=== PATIENT | female | born 1995 | race Caucasian/White ===

== ENCOUNTER 2016-10-25 09:58 | Emergency (ER) | payer SELFPAY ==
[~2016-10-25] VITALS: Ht 160 cm; Wt 52.0 kg
[2016-10-25 09:59] VITALS: BP 129/62; PULSE 98; RESP 20; TEMP 98; O2SAT 95
--- NOTE | 2016-10-25 10:18 | PD ---
HPI . sore throat Chief Complaint: ENT Complaint Time Seen by Provider: 10:08 Travel History International Travel<30 days: No Contact w/Intl Traveler<30days: No Traveled to known affect area: No History of Present Illness HPI 21-year-old female with history of ASD within an Amplatzer septal occluder (2013 ) here with complaints of a sore throat that started yesterday. Patient is complaining of increased sore throat and pain, along with a lot of redness in the back of her throat. She denies any fever or chills. She denies any cold symptoms. She has no other complaints. She's not tried anything over-the- counter. Her best friend is present with her. PFSH Past Medical History ?: Not LMP: 10/22/16 Social History Tobacco Use: Yes Allergies-Medications Reported Meds & Prescriptions Reported Meds & Active Scripts Active Amoxicillin 875 Mg Tab 875 Mg PO BID Review of Systems General / Constitutional: No: Fever Eyes: No: Visual changes HENT: Positive: Sore Throat, No: Headaches Cardiovascular: No: Chest Pain or Discomfort Respiratory: No: Shortness of Breath Gastrointestinal: No: Abdominal Pain Genitourinary: No: Dysuria Musculoskeletal: No: Pain Skin: No Rash Neurologic: No: Weakness Psychiatric: No: Depression Endocrine: No: Polydipsia Hematologic/Lymphatic: No: Easy Bruising Physical Exam Narrative GENERAL: AAO x 3, no acute distress, Well-nourished, well-developed patient. SKIN: Warm and dry. No visible rashes or bruising. HEAD: Normocephalic and atraumatic. EYES: No scleral icterus. No injection or drainage. Moderate posterior pharynx erythema. No exudates. TMs normal bilaterally ENT: No nasal drainage noted. Mucous membranes pink. Airway patent. NECK: Supple, trachea midline. No JVD. Cervical chain lymphadenopathy. CARDIOVASCULAR: Regular rate and rhythm without murmurs, gallops, or rubs. RESPIRATORY: Breath sounds equal bilaterally. No accessory muscle use. No rhonchi or rales. GASTROINTESTINAL: Abdomen soft, non-tender, nondistended. EXTREMITIES: No cyanosis or edema. BACK: Nontender without obvious deformity. No CVA tenderness. PSYCH: AAO x 3, normal affect. Data Data Last Documented VS Vital Signs Date Time Temp Pulse Resp B/P Pulse Ox O2 Delivery O2 Flow Rate FiO2 10/25/16 09:59 98.0 98 20 129/62 95 Room Air MDM Medical Decision Making Medical Screen Exam Complete: Yes Emergency Medical Condition: Yes Medical Record Reviewed: Yes Differential Diagnosis Acute pharyngitis, mononucleosis, less likely aphthous ulcers,, less likely GERD Narrative Course 21-year-old female with history of ASD within an Amplatzer septal occluder (2013 ) here with complaints of a sore throat that started yesterday. Patient is complaining of increased sore throat and pain, along with a lot of redness in the back of her throat. She denies any fever or chills. She denies any cold symptoms. She has no other complaints. She's not tried anything over-the- counter. Her best friend is present with her. Patient seen and examined. Patient does have significant posterior erythema without exudates. Will send home with a course of antibiotics and ibuprofen as needed for pain. She can also use salt water gargles. Patient verbalized understanding of instructions, questions were answered, and thanked me for their care. I advised them if their condition worsens, please return to the nearest emergency room for further care. Diagnosis Primary Impression: Acute pharyngitis Qualified Code: J02.9 - Acute pharyngitis, unspecified etiology Patient Instructions: General Instructions, Pharyngitis (ED) Additional Instructions: Please return to emergency department if your symptoms return or worsen. Follow up with your primary care provider. Take medications as prescribed. You can take [id number] ibuprofen as needed for pain. Use salt water gargles twice daily. Med/Other Pt SpecificInfo: Prescription(s) given Scripts Amoxicillin 875 Mg [id number] Mg PO BID #10 TAB Ref 0 Prov:Isa Reynolds MD 10/25/16 Disposition: 01 DISCHARGE HOME Condition: Stable Aysha Jarrell Oct 25, 2016 10:18
[2016-10-25] MEDS ORDERED: AMOX875T PO ×2 (10:19→10:20)
== END 2016-10-25 10:41 | disposition home or self-care (01) ==
LOC: NEPB 09:58
DX: J02.9 Acute pharyngitis, unspecified (principal); Z86.79 Personal history of other diseases of the circulatory system; Z72.0 Tobacco use
CPT/HCPCS: 99282